=== PATIENT | male | born 1980 | race Caucasian/White ===

== ENCOUNTER 2017-02-25 03:22 | Emergency (ER) | payer OTHER ==
[~2017-02-25] VITALS: Ht 180.3 cm; Wt 72.6 kg
[~2017-02-25 03:22] MED LIST: AMOX500 PO; ATOR80 PO; CITA20 PO; CLOP75 PO; CYCL10 PO; DOXE10 PO; GABA300 PO; GEMF600 PO; GLIP5 PO; HYDHCL25 PO; HYDMOR2 PO; INSU100I6; LISI5 PO; MEDICAL MARIJUANA; METF500 PO; METF500C PO; NAPR500 PO; NICO21TP; OMEP20ER PO; OMEPRAZOLE MAGN20 MG PO; OXYACE5T PO; OXYC10ER PO; OXYC5 PO; PRED10 PO; PROM25 PO; Prednisone10 MG PO; Prednisone20 MG PO; RXOXYACE PO; RXTRAM50 PO; TRAM50 PO; Ultram50 MG PO; Zithromax250 MG PO
== END 2017-02-25 04:26 | disposition home or self-care (01) ==
LOC: ER 03:22
DX: M54.2 Cervicalgia (principal); E11.42 Type 2 diabetes mellitus with diabetic polyneuropathy; M79.602 Pain in left arm; M79.601 Pain in right arm; I10 Essential (primary) hypertension; F17.200 Nicotine dependence, unspecified, uncomplicated; Z88.8 Allergy status to other drugs, medicaments and biological substances; Z79.899 Other long term (current) drug therapy; Z79.84 Long term (current) use of oral hypoglycemic drugs; Z79.4 Long term (current) use of insulin
CPT/HCPCS: 96372; 99283; J1885

== ENCOUNTER 2017-05-01 15:28 | Emergency (ER) | payer OTHER ==
[~2017-05-01] VITALS: Ht 180.3 cm; Wt 70.3 kg
[2017-05-01] MEDS ORDERED: Cleocin HCl300 MG PO (16:38)
[2017-05-01] MEDS ORDERED: Ultram50 MG PO (16:38)
== END 2017-05-01 16:56 | disposition home or self-care (01) ==
LOC: ER 15:28
DX: K04.7 Periapical abscess without sinus (principal); K08.89 Other specified disorders of teeth and supporting structures; Z88.8 Allergy status to other drugs, medicaments and biological substances; Z79.899 Other long term (current) drug therapy; Z79.4 Long term (current) use of insulin; Z79.84 Long term (current) use of oral hypoglycemic drugs; E11.9 Type 2 diabetes mellitus without complications; Z86.73 Personal history of transient ischemic attack (TIA), and cerebral infarction without residual deficits; I10 Essential (primary) hypertension; F17.210 Nicotine dependence, cigarettes, uncomplicated
CPT/HCPCS: 64400; 99283

== ENCOUNTER 2017-06-04 01:48 | Emergency (ER) | payer OTHER ==
[~2017-06-04] VITALS: Ht 180.3 cm; Wt 72.6 kg
[~2017-06-04 01:48] MED LIST changes: +Cleocin HCl300 MG PO
[2017-06-04 02:26] LABS: BASOPHILS ABSOLUTE AUTO 0.06 K/mm3 (0.00-0.23); BASOPHILS PERCENT AUTO 1 % (0-2); EOSINOPHILS ABSOLUTE AUTO 0.18 K/mm3 (0.00-0.68); EOSINOPHILS PERCENT AUTO 2 % (0-6); Hematocrit 44.6 % (37.0-53.0); Hemoglobin 15.3 g/dL (13.5-17.5); IMMATURE GRAN ABSOLUTE AUTO 0.03 K/mm3 (0.00-0.10); IMMATURE GRAN PERCENT AUTO 0 % (0-1); LYMPHOCYTES ABSOLUTE AUTO 3.38 K/mm3 (0.84-5.20); LYMPHOCYTES PERCENT AUTO 33 % (21-46); MONOCYTES ABSOLUTE AUTO 0.61 K/mm3 (0.16-1.47); MONOCYTES PERCENT AUTO 6 % (4-13); Mean Corpuscular HGB 29.8 pg (26.0-34.0); Mean Corpuscular HGB Conc 34.3 g/dL (31.5-36.5); Mean Corpuscular Volume 87 fL (80-100); Mean Platelet Volume 10.4 fL (9.1-12.4); NEUTROPHILS ABSOLUTE AUTO 6.13 K/mm3 (1.96-9.15); NEUTROPHILS PERCENT AUTO 59 % (41-73); Platelet Count 259 K/mm3 (150-400); RDW Coefficient Variation 12.9 % (11.7-14.2); Red Blood Cell Count 5.13 M/mm3 (4.30-5.90); White Blood Cell Count 10.39 K/mm3 (4.00-11.30)
[2017-06-04 02:46] LABS: International Normalized Ratio 1.06
[2017-06-04 02:47] LABS: Alanine Aminotransfer (ALT/SGP 33 U/L (12-78); Albumin, Blood 3.7 g/dL (3.4-5.0); Albumin/Globulin Ratio 1.1 (0.8-1.8); Alk Phos 97 U/L (50-136); Anion Gap 8 mmol/L (6-16); Aspartate Aminotrans (AST/SGOT 12 U/L (12-37); Beta-hydroxybutyrate 1.7 mg/dL (0.2-2.8); Bilirubin, Total 0.3 mg/dL (0.1-1.0); Blood Urea Nitrogen 14 mg/dL (8-24); Bun/Creatinine Ratio 24.2 (12.0-20.0); CO2, Blood 25 mmol/L (21-32); Calcium, Blood 8.4 mg/dL (8.5-10.1); Chloride, Blood 106 mmol/L (98-108); Creatinine, Blood 0.58 mg/dL (0.60-1.20); Globulin, Blood 3.3 g/dL (2.2-4.0); Glomerular Filtration Rate >60 (60-); Glucose, Blood 261 mg/dL (70-99); Potassium, Blood 3.7 mmol/L (3.5-5.5); Sodium, Blood 139 mmol/L (136-145); Troponin I <0.015 ng/mL (0.000-0.040)
== END 2017-06-04 04:24 ==
LOC: ER 01:48
PROVIDERS: Emergency Medicine
DX: G45.9 Transient cerebral ischemic attack, unspecified (principal); E11.9 Type 2 diabetes mellitus without complications; I10 Essential (primary) hypertension; K21.9 Gastro-esophageal reflux disease without esophagitis; F17.210 Nicotine dependence, cigarettes, uncomplicated; Z88.6 Allergy status to analgesic agent; Z88.8 Allergy status to other drugs, medicaments and biological substances
CPT/HCPCS: 36415; 70450; 70496; 70498; 80053; 82010; 83735; 84484; 85025; 85610; 93005; 93010; 99284; Q9967

== ENCOUNTER → 2020-09-03 | Outpatient (CLI) | payer OTHER ==
[2020-09-03 19:29] LABS: BASOPHILS ABSOLUTE AUTO 0.06 K/mm3 (0.00-0.23); BASOPHILS PERCENT AUTO 1 % (0-2); EOSINOPHILS PERCENT AUTO 2 % (0-6); IMMATURE GRAN ABSOLUTE AUTO 0.02 K/mm3 (0.00-0.10); IMMATURE GRAN PERCENT AUTO 0 % (0-1); LYMPHOCYTES ABSOLUTE AUTO 2.81 K/mm3 (0.84-5.20); LYMPHOCYTES PERCENT AUTO 28 % (21-46); MONOCYTES ABSOLUTE AUTO 0.77 K/mm3 (0.16-1.47); MONOCYTES PERCENT AUTO 8 % (4-13); Mean Corpuscular HGB 30.3 pg (26.0-34.0); Mean Corpuscular HGB Conc 34.8 g/dL (31.5-36.5); Mean Corpuscular Volume 87 fL (80-100); NEUTROPHILS ABSOLUTE AUTO 6.27 K/mm3 (1.96-9.15); NEUTROPHILS PERCENT AUTO 62 % (41-73); Platelet Count 259 K/mm3 (150-400); RDW Coefficient Variation 12.3 % (11.7-14.2); RDW Standard Deviation 39.2 fL (35.1-46.3); Red Blood Cell Count 5.28 M/mm3 (4.30-5.90); White Blood Cell Count 10.13 K/mm3 (4.00-11.30)
[2020-09-03 20:14] LABS: Very Low Density Lipoprot Chol 14 mg/dL (6-32)
[2020-09-03 20:15] LABS: LDL/HDL RATIO 2.3
[2020-09-03 20:16] LABS: CHOL/HDL RATIO 3.6; Cholesterol 172 mg/dL (50-200); HDL Cholesterol 48 mg/dL (>39); Low Density Lipoprotein Chol 110 mg/dL (0-110); Triglycerides 70 mg/dL (30-160)
[2020-09-03 20:18] LABS: Free Thyroxine 0.98 ng/dL (0.70-1.60)
[2020-09-03 20:24] LABS: Alanine Aminotransfer (ALT/SGP 45 U/L (12-78); Albumin, Blood 4.3 g/dL (3.4-5.0); Albumin/Globulin Ratio 1.2 (0.8-1.8); Alk Phos 108 U/L (50-136); Anion Gap 8 mmol/L (6-16); Aspartate Aminotrans (AST/SGOT 28 U/L (12-37); Bilirubin, Total 0.5 mg/dL (0.1-1.0); Blood Urea Nitrogen 17 mg/dL (8-24); Bun/Creatinine Ratio 23.3 (12.0-20.0); CO2, Blood 25 mmol/L (21-32); Calcium, Blood 9.3 mg/dL (8.5-10.1); Chloride, Blood 106 mmol/L (98-108); Creatinine, Blood 0.73 mg/dL (0.60-1.20); Globulin, Blood 3.5 g/dL (2.2-4.0); Glomerular Filtration Rate >60 (60-); Glucose, Blood 199 mg/dL (70-99); Potassium, Blood 3.8 mmol/L (3.5-5.5); Sodium, Blood 139 mmol/L (136-145); Total Protein, Blood 7.8 g/dL (6.4-8.2)
== END | disposition home or self-care (01) ==
LOC: LAB SHORT 18:36 → LAB 18:36
PROVIDERS: General Practice
DX: E11.65 Type 2 diabetes mellitus with hyperglycemia (principal); N50.812 Left testicular pain; R53.81 Other malaise
CPT/HCPCS: 80053; 80061; 83036; 84403; 84439; 84443; 85025

== ENCOUNTER → 2020-12-28 | Outpatient (CLI) | payer OTHER ==
[2020-12-28 15:18] LABS: Anion Gap 11 mmol/L (6-16); Blood Urea Nitrogen 14 mg/dL (8-24); Bun/Creatinine Ratio 17.9 (12.0-20.0); CO2, Blood 27 mmol/L (21-32); Calcium, Blood 9.1 mg/dL (8.5-10.1); Chloride, Blood 101 mmol/L (98-108); Creatinine, Blood 0.78 mg/dL (0.60-1.20); Glomerular Filtration Rate >60 (60-); Glucose, Blood 292 mg/dL (70-99); Potassium, Blood 4.1 mmol/L (3.5-5.5); Sodium, Blood 139 mmol/L (136-145)
[2020-12-28 15:21] LABS: Troponin I <0.017 ng/mL (0.000-0.040)
== END ==
LOC: LAB SHORT 15:03 → LAB 15:03
PROVIDERS: Physician Assistant
DX: R07.9 Chest pain, unspecified (principal); Z88.8 Allergy status to other drugs, medicaments and biological substances; Z88.6 Allergy status to analgesic agent
CPT/HCPCS: 80048; 84484

== ENCOUNTER 2020-12-30 11:11 | Emergency (ER) | payer OTHER ==
[~2020-12-30] VITALS: Ht 180.3 cm; Wt 63.5 kg
[2020-12-30 12:15] LABS: BASOPHILS PERCENT AUTO 1 % (0-2); EOSINOPHILS ABSOLUTE AUTO 0.54 K/mm3 (0.00-0.68); EOSINOPHILS PERCENT AUTO 5 % (0-6); Hematocrit 48.9 % (37.0-53.0); IMMATURE GRAN ABSOLUTE AUTO 0.05 K/mm3 (0.00-0.10); IMMATURE GRAN PERCENT AUTO 0 % (0-1); LYMPHOCYTES ABSOLUTE AUTO 3.14 K/mm3 (0.84-5.20); LYMPHOCYTES PERCENT AUTO 27 % (21-46); MONOCYTES PERCENT AUTO 6 % (4-13); Mean Corpuscular HGB 30.1 pg (26.0-34.0); Mean Corpuscular HGB Conc 34.8 g/dL (31.5-36.5); Mean Corpuscular Volume 87 fL (80-100); Mean Platelet Volume 10.5 fL (9.1-12.4); NEUTROPHILS ABSOLUTE AUTO 7.08 K/mm3 (1.96-9.15); NEUTROPHILS PERCENT AUTO 61 % (41-73); Platelet Count 318 K/mm3 (150-400); RDW Standard Deviation 38.9 fL (35.1-46.3); Red Blood Cell Count 5.64 M/mm3 (4.30-5.90); White Blood Cell Count 11.61 K/mm3 (4.00-11.30)
[2020-12-30 12:50] LABS: Alanine Aminotransfer (ALT/SGP 28 U/L (12-78); Albumin, Blood 3.7 g/dL (3.4-5.0); Albumin/Globulin Ratio 0.9 (0.8-1.8); Alk Phos 130 U/L (50-136); Anion Gap 4 mmol/L (6-16); Aspartate Aminotrans (AST/SGOT 11 U/L (12-37); Bilirubin, Total 0.4 mg/dL (0.1-1.0); Blood Urea Nitrogen 17 mg/dL (8-24); Bun/Creatinine Ratio 30.7 (12.0-20.0); CO2, Blood 29 mmol/L (21-32); Calcium, Blood 9.3 mg/dL (8.5-10.1); Chloride, Blood 101 mmol/L (98-108); Creatinine, Blood 0.55 mg/dL (0.60-1.20); Globulin, Blood 3.9 g/dL (2.2-4.0); Glomerular Filtration Rate >60 (60-); Glucose, Blood 398 mg/dL (70-99); Potassium, Blood 4.4 mmol/L (3.5-5.5); Sodium, Blood 134 mmol/L (136-145); Total Protein, Blood 7.6 g/dL (6.4-8.2); Troponin I <0.015 ng/mL (0.000-0.040)
[2020-12-30] MEDS ORDERED: CYCL10 (13:52)
[2020-12-30] MEDS ORDERED: IBUP800 PO (13:52)
[2020-12-30] MEDS ORDERED: TRAM50 PO (14:20)
== END 2020-12-30 14:35 | disposition home or self-care (01) ==
LOC: ER 11:11
PROVIDERS: Physician Assistant
DX: S29.012A Strain of muscle and tendon of back wall of thorax, initial encounter (principal); E11.65 Type 2 diabetes mellitus with hyperglycemia; M19.90 Unspecified osteoarthritis, unspecified site; I10 Essential (primary) hypertension; K21.9 Gastro-esophageal reflux disease without esophagitis; F17.210 Nicotine dependence, cigarettes, uncomplicated; Z86.73 Personal history of transient ischemic attack (TIA), and cerebral infarction without residual deficits; Z79.84 Long term (current) use of oral hypoglycemic drugs; Z88.6 Allergy status to analgesic agent; Z88.8 Allergy status to other drugs, medicaments and biological substances; X58.XXXA Exposure to other specified factors, initial encounter
CPT/HCPCS: 36415; 71046; 80053; 83690; 84484; 85025; 85379; 93005; 93010; 96374; 99285-25; J1885

== ENCOUNTER 2021-01-23 16:08 | Emergency (ER) | payer OTHER ==
[~2021-01-23] VITALS: Ht 180.3 cm; Wt 65.8 kg
[~2021-01-23 16:08] MED LIST changes: +CYCL10; +IBUP800 PO
[2021-01-23 16:38] LABS: BASOPHILS ABSOLUTE AUTO 0.05 K/mm3 (0.00-0.23); BASOPHILS PERCENT AUTO 1 % (0-2); EOSINOPHILS ABSOLUTE AUTO 0.55 K/mm3 (0.00-0.68); EOSINOPHILS PERCENT AUTO 6 % (0-6); Hematocrit 47.9 % (37.0-53.0); Hemoglobin 16.5 g/dL (13.5-17.5); IMMATURE GRAN ABSOLUTE AUTO 0.01 K/mm3 (0.00-0.10); IMMATURE GRAN PERCENT AUTO 0 % (0-1); LYMPHOCYTES ABSOLUTE AUTO 3.17 K/mm3 (0.84-5.20); LYMPHOCYTES PERCENT AUTO 32 % (21-46); MONOCYTES ABSOLUTE AUTO 0.63 K/mm3 (0.16-1.47); MONOCYTES PERCENT AUTO 6 % (4-13); Mean Corpuscular HGB 29.7 pg (26.0-34.0); Mean Corpuscular HGB Conc 34.4 g/dL (31.5-36.5); Mean Corpuscular Volume 86 fL (80-100); Mean Platelet Volume 10.5 fL (9.1-12.4); NEUTROPHILS ABSOLUTE AUTO 5.42 K/mm3 (1.96-9.15); NEUTROPHILS PERCENT AUTO 55 % (41-73); Platelet Count 323 K/mm3 (150-400); RDW Standard Deviation 38.1 fL (35.1-46.3); Red Blood Cell Count 5.55 M/mm3 (4.30-5.90); White Blood Cell Count 9.83 K/mm3 (4.00-11.30)
[2021-01-23 17:01] LABS: Alanine Aminotransfer (ALT/SGP 24 U/L (12-78); Albumin, Blood 3.6 g/dL (3.4-5.0); Alk Phos 102 U/L (50-136); Anion Gap 4 mmol/L (6-16); Aspartate Aminotrans (AST/SGOT 13 U/L (12-37); Bilirubin, Total 0.6 mg/dL (0.1-1.0); Blood Urea Nitrogen 14 mg/dL (8-24); Bun/Creatinine Ratio 27.5 (12.0-20.0); CO2, Blood 25 mmol/L (21-32); Calcium, Blood 8.7 mg/dL (8.5-10.1); Chloride, Blood 107 mmol/L (98-108); Creatinine, Blood 0.51 mg/dL (0.60-1.20); Globulin, Blood 3.7 g/dL (2.2-4.0); Glomerular Filtration Rate >60 (60-); Glucose, Blood 240 mg/dL (70-99); Potassium, Blood 3.8 mmol/L (3.5-5.5); Sodium, Blood 136 mmol/L (136-145); Total Protein, Blood 7.3 g/dL (6.4-8.2); Troponin I <0.015 ng/mL (0.000-0.040)
[2021-01-23] MEDS ORDERED: IBUP800 PO (18:31)
== END 2021-01-23 18:50 | disposition home or self-care (01) ==
LOC: ER 16:08
PROVIDERS: Physician Assistant
DX: S29.9XXA Unspecified injury of thorax, initial encounter (principal); K08.89 Other specified disorders of teeth and supporting structures; W01.198A Fall on same level from slipping, tripping and stumbling with subsequent striking against other object, initial encounter; Z88.8 Allergy status to other drugs, medicaments and biological substances; Z79.899 Other long term (current) drug therapy; Z79.84 Long term (current) use of oral hypoglycemic drugs; E11.9 Type 2 diabetes mellitus without complications; I10 Essential (primary) hypertension; K21.9 Gastro-esophageal reflux disease without esophagitis; F17.210 Nicotine dependence, cigarettes, uncomplicated
CPT/HCPCS: 36415; 71260; 80053; 83690; 83880; 84484; 85025; 93005; 93010; 96374; 99285-25; A9270; J1885; Q9967

== ENCOUNTER 2021-02-26 11:12 | Emergency (ER) | payer OTHER ==
[~2021-02-26] VITALS: Ht 180.3 cm; Wt 65.8 kg
[2021-02-26] MEDS ORDERED: IBUP400 PO (13:16)
== END 2021-02-26 13:29 | disposition home or self-care (01) ==
LOC: ER 11:12
DX: J40 Bronchitis, not specified as acute or chronic (principal); E11.9 Type 2 diabetes mellitus without complications; I10 Essential (primary) hypertension; Z86.73 Personal history of transient ischemic attack (TIA), and cerebral infarction without residual deficits; F17.210 Nicotine dependence, cigarettes, uncomplicated; Z88.8 Allergy status to other drugs, medicaments and biological substances; Z79.84 Long term (current) use of oral hypoglycemic drugs; Z79.899 Other long term (current) drug therapy
CPT/HCPCS: 71046; 99283-25

== ENCOUNTER 2022-01-15 09:39 | Emergency (ER) | payer OTHER ==
[~2022-01-15] VITALS: Ht 180.3 cm; Wt 63.5 kg
[~2022-01-15 09:39] MED LIST changes: +IBUP400 PO
[2022-01-15] MEDS ORDERED: CYCL10 PO (11:54)
[2022-01-15] MEDS ORDERED: METPRE4DP PO (11:54)
[2022-01-15] MEDS ORDERED: Voltaren100 GM TOP (11:54)
== END 2022-01-15 12:09 | disposition home or self-care (01) ==
LOC: ER 09:39
DX: M25.511 Pain in right shoulder (principal); E11.9 Type 2 diabetes mellitus without complications; F17.210 Nicotine dependence, cigarettes, uncomplicated; Z86.73 Personal history of transient ischemic attack (TIA), and cerebral infarction without residual deficits
CPT/HCPCS: 73030

== ENCOUNTER → 2022-02-08 | Outpatient (CLI) | payer OTHER ==
[~2022-02-08] MED LIST changes: +METPRE4DP PO; +Voltaren100 GM TOP
== END | disposition home or self-care (01) ==
LOC: LAB 15:50 → LAB SHORT 15:50
DX: H92.12 Otorrhea, left ear (principal); H70.12 Chronic mastoiditis, left ear
CPT/HCPCS: 87070; 87186; 87205

== ENCOUNTER → 2022-03-11 | Outpatient (CLI) | payer OTHER | END | disposition home or self-care (01) | LOC: LAB SHORT 08:38 | DX: H92.12 Otorrhea, left ear (principal) | CPT/HCPCS: 87070; 87205 ==

== ENCOUNTER 2022-03-14 13:42 | Inpatient (IN) | payer OTHER ==
[~2022-03-14] VITALS: Ht 180.3 cm; Wt 56.9 kg
[2022-03-14 14:05] LABS: Base Excess Venous -2.8 mmol/L; Bicarbonate Venous 21.8 mmol/L (24.0-30.0); PCO2 Venous 34.3 mmHg (38-42); pH Blood Venous 7.41 (7.34-7.37)
[2022-03-14 14:20] LABS: Hematocrit 49.6 % (37.0-53.0); Hemoglobin 17.6 g/dL (13.5-17.5); Mean Corpuscular HGB 29.7 pg (26.0-34.0); Mean Corpuscular HGB Conc 35.5 g/dL (31.5-36.5); Mean Corpuscular Volume 84 fL (80-100); Mean Platelet Volume 11.8 fL (9.1-12.4); Platelet Count 342 K/mm3 (150-400); RDW Coefficient Variation 12.4 % (11.7-14.2); RDW Standard Deviation 37.4 fL (35.1-46.3); Red Blood Cell Count 5.93 M/mm3 (4.30-5.90); White Blood Cell Count 26.51 K/mm3 (4.00-11.30)
[2022-03-14 14:35] LABS: Bilirubin, Total 1.2 mg/dL (0.1-1.0); Bun/Creatinine Ratio 40.2 (12.0-20.0); Calcium, Blood 10.1 mg/dL (8.5-10.1); Creatinine, Blood 0.85 mg/dL (0.60-1.20); Globulin, Blood 4.1 g/dL (2.2-4.0); Potassium, Blood 3.7 mmol/L (3.5-5.5); Total Protein, Blood 8.1 g/dL (6.4-8.2)
[2022-03-14 15:09] LABS: International Normalized Ratio 1.09; Prothrombin Time Results 11.4 Sec (9.7-11.5)
[2022-03-14 15:29] LABS: Source, Urine Clean Catch
[2022-03-14 15:37] LABS: Appearance, Urine Clear (Clear); Bilirubin, Urine Neg (Neg); Blood, Urine Neg (Neg); Glucose Qualitative, Urine 4+ (Neg); Ketones, Urine 4+ (Neg); Leukocyte Esterase, Urine Neg (Neg); Nitrite, Urine Neg (Neg); Protein, Urine Neg (Neg); Specific Gravity, Urine 1.025 (1.003-1.022); Urobilinogen, Urine NORM (Normal)
[2022-03-14 15:54] LABS: Color, Urine Pale Yellow (P-Yellow)
[2022-03-14 16:09] LABS: Influenza A, PCR NEGATIVE (NEGATIVE); Influenza B, PCR NEGATIVE (NEGATIVE); Resp Syncytial Virus, PCR NEGATIVE (NEGATIVE); SARS-Cov-2 (COVID-19) PCR, MMC NEGATIVE (NEGATIVE)
[2022-03-14 16:26] LABS: U Amphetamine Screen Not Detected; U Barbituate Screen Not Detected; U Benzodiazapine Screen Not Detected; U Buprenorphine Screen Not Detected; U Cannabinoids Screen DETECTED; U Cocaine Screen Not Detected; U Methadone Screen Not Detected; U Methamphetamine Screen Not Detected; U Opiates Screen Not Detected; U Oxycodone Screen Not Detected; U Phencyclidine Screen Not Detected; U Propoxyphene Screen Not Detected
[2022-03-14 16:27] LABS: Magnesium, Blood 2.2 mg/dL (1.6-2.4)
[2022-03-14 16:36] LABS: Beta-hydroxybutyrate 102.7 mg/dL (0.2-2.8); Phosphorus, Blood 6.8 mg/dL (2.5-4.9)
[2022-03-14 17:30] LABS: BASOPHILS PERCENT MAN 0 % (0-2); EOSINOPHILS PERCENT MAN 0 % (0-6); LYMPHOCYTES ABSOLUTE MAN 4.24 K/mm3 (0.84-5.20); LYMPHOCYTES PERCENT MAN 16 % (21-46); MONOCYTES ABSOLUTE MAN 1.59 K/mm3 (0.16-1.47); MONOCYTES PERCENT MAN 6 % (4-13); NEUTROPHILS ABSOLUTE MAN 20.67 K/mm3 (1.96-9.15); SEG NEUTROPHILS PERCENT MAN 78 % (41-73); TOTAL CELLS COUNTED 100
[2022-03-14 18:28] LABS: Albumin, Blood 3.5 g/dL (3.4-5.0); Anion Gap 18 mmol/L (6-16); Blood Urea Nitrogen 31 mg/dL (8-24); CO2, Blood 23 mmol/L (21-32); Calcium, Blood 8.7 mg/dL (8.5-10.1); Chloride, Blood 96 mmol/L (98-108); Creatinine, Blood 0.78 mg/dL (0.60-1.20); Glomerular Filtration Rate 113 (60-); Glucose, Blood 434 mg/dL (70-99); Phosphorus, Blood 4.9 mg/dL (2.5-4.9); Sodium, Blood 137 mmol/L (136-145)
--- NOTE | 2022-03-14 19:05 | NUR ---
PATIENT ARRIVED TO ICU 3 VIA [facility]NEY [facility] ED. TRANSFER TO BED USING SLIDER SHEET AND PLACED ON ICU MONITORS. INSULIN 7.3 UNITS INFUSING, KPHOS INFUSING, AND 1/2 NS 20 KCL INFUSING. PATIENT IMPULSIVE AND MOANING, WHEN ASKED SPECIFIC QUESTIONS ABLE TO ANSWER WITHOUT DIFFICULTY. WHEN ASKED WHY HE KEPT MOVING AND PULLING ON MONITOR LEADS, PATIENT VERBALIZED " I JUST HURT" RUBBING HIS NECK AND HIS RIGHT SHOULDER. AGAIN EXPLAINED IMPORTANCE TO KEEP ALL LINES AND IV'S IN PLACE, AND REMIND PATIENT THAT HE IS NOW IN THE ICU. APPEARED TO CALM DOWN WHEN GIVEN ICE CHIP AND NOTIFIED THAT I WILL CALL THE DOCTOR REGARDING HIS PAIN.
--- NOTE | 2022-03-14 20:03 | NUR ---
DOCTOR BURDEN CALLED AND GIVEN UPDATE, NOTIFIED OF SEVERE THROAT PAIN. ORDER OBTAINED FOR PAIN MEDICATIONS.
--- NOTE | 2022-03-14 20:45 | NUR ---
PATIENT SPITTING COUCH BLOOD TINGED SPUTUM ON THE FLOOR, PATIENT AGAIN SHOWED THE EMESIS BAG, AND KLEENEX. WHEN ASKED IF IT WAS EMESIS OR SPUTUM, PATIENT ONLY ABLE TO SAY THAT IT CAME FROM BACK OF THIS THROAT.
[2022-03-14 22:24] LABS: Albumin, Blood 3.5 g/dL (3.4-5.0); Anion Gap 9 mmol/L (6-16); Blood Urea Nitrogen 27 mg/dL (8-24); Bun/Creatinine Ratio 44.9 (12.0-20.0); CO2, Blood 29 mmol/L (21-32); Calcium, Blood 9.1 mg/dL (8.5-10.1); Chloride, Blood 100 mmol/L (98-108); Glomerular Filtration Rate 122 (60-); Glucose, Blood 213 mg/dL (70-99); Phosphorus, Blood 4.1 mg/dL (2.5-4.9); Potassium, Blood 3.5 mmol/L (3.5-5.5); Sodium, Blood 138 mmol/L (136-145)
--- NOTE | 2022-03-14 22:46 | NUR ---
PATIENT HAD 100 CC OF EMESIS, LOOKING LIKE BROWN BILE. CONTINUES TO C/O SORE THROAT WHEN AWAKE. CONTINUES TO BE A&O, BUT VERY IMPULSIVE. UP TO BSC WITH MIN ASSISTANCE PASSING LARGE HARD FORMED BROWN BM, AND VOIDING CLEAR YELLOW URINE.
[2022-03-15 02:23] LABS: BASOPHILS ABSOLUTE AUTO 0.05 K/mm3 (0.00-0.23); BASOPHILS PERCENT AUTO 0 % (0-2); EOSINOPHILS ABSOLUTE AUTO 0.04 K/mm3 (0.00-0.68); EOSINOPHILS PERCENT AUTO 0 % (0-6); IMMATURE GRAN ABSOLUTE AUTO 0.11 K/mm3 (0.00-0.10); IMMATURE GRAN PERCENT AUTO 1 % (0-1); LYMPHOCYTES ABSOLUTE AUTO 2.81 K/mm3 (0.84-5.20); LYMPHOCYTES PERCENT AUTO 12 % (21-46); MONOCYTES ABSOLUTE AUTO 2.56 K/mm3 (0.16-1.47); MONOCYTES PERCENT AUTO 11 % (4-13); Mean Corpuscular HGB 29.6 pg (26.0-34.0); Mean Corpuscular HGB Conc 35.7 g/dL (31.5-36.5); Mean Corpuscular Volume 83 fL (80-100); Mean Platelet Volume 10.6 fL (9.1-12.4); NEUTROPHILS ABSOLUTE AUTO 17.44 K/mm3 (1.96-9.15); NEUTROPHILS PERCENT AUTO 76 % (41-73); Platelet Count 245 K/mm3 (150-400); RDW Coefficient Variation 12.3 % (11.7-14.2); RDW Standard Deviation 37.4 fL (35.1-46.3); Red Blood Cell Count 5.07 M/mm3 (4.30-5.90); White Blood Cell Count 23.01 K/mm3 (4.00-11.30)
[2022-03-15 02:42] LABS: Albumin, Blood 3.1 g/dL (3.4-5.0); Anion Gap 7 mmol/L (6-16); Blood Urea Nitrogen 22 mg/dL (8-24); Bun/Creatinine Ratio 42.1 (12.0-20.0); CO2, Blood 29 mmol/L (21-32); Calcium, Blood 8.4 mg/dL (8.5-10.1); Chloride, Blood 102 mmol/L (98-108); Creatinine, Blood 0.52 mg/dL (0.60-1.20); Glomerular Filtration Rate 127 (60-); Glucose, Blood 147 mg/dL (70-99); Phosphorus, Blood 3.3 mg/dL (2.5-4.9); Potassium, Blood 3.3 mmol/L (3.5-5.5); Sodium, Blood 138 mmol/L (136-145)
--- NOTE | 2022-03-15 03:21 | NUR ---
DOCTOR KATE NOTIFIED OF REPEAT CHEM, AND POTASSIUM LEVEL. REPLACEMENT ORDERED
--- NOTE | 2022-03-15 05:12 | NUR ---
PATIENT MORE AWAKE AND COOPERATIVE. ASKING WHAT HAPPENED. EXPLAINED THAT HE HAS BEEN HAVING N/V FOR DAYS, THEN BECOMING CONFUSED SO HIS SISTER CALLED EMS. PATIENT VERBALIZED THAT HE WAS WORRIED ABOUT HIS KIDS AGES 13 AND 17. AND CALLED HIS CELL PHONE NUMBER AND WAS ABLE TO TALK TO HIS SISTER, AUGUTSO. PATIENT VERBALIZED THAT HE WASN'T ABLE TO GET A REFILL ON HIS INSULIN MONTHS AGO, UNABLE TO SPECIFY WHEN HE LAST TOOK ANY INSULIN. PATIENT HAVING MOIST SOUNDING VOICE, VERBALIZED THAT HE HAS BEEN HAVING A LOT OF DRAINAGE FROM HIS SINUSES AND LEFT EAR FOR DAYS NOW. PATIENT THINKING THAT THIS IS CAUSING HIS NAUSEA. EXPLAINED AGAIN THAT HE WAS IN DKA, WITH HIS SUGAR TO HIGH WHICH ALSO CAN CAUSE NAUSEA.
--- NOTE | 2022-03-15 06:22 | NUR ---
SUMMARY PATIENT MORE COOPERATIVE AND AWARE OF HIS LINES AND CORDS NIGHT PROGRESSED. CONTINUES TO C/O THROAT PAIN, WITH MOIST SOUNDING VOICE, FREQUENTLY CLEARING THROAT AND SPITTING INTO EMESIS BAG, SPUTUM RANGING FROM CLEAR TO COUCH BLOOD STREAKED. MEDICATED TWICE WITH MORPHINE 1 MG IV FOR PAIN. RANDOLPH FEW ICE CHIPS THIS MORNING. INSULIN DRIP TITRATED DURING THE NIGHT NOW 5 UNITS/HR. D5 1/2NS @ 150 CC/HR INFUSING, AND NS TKO FOR ANTIBIOTICS. K-RIDER INFUSING C/O SLIGHT BURNING PAIN TO THE IV, NO SWELLING OR LEAKING SEEN, WARM BLANKET PLACED OVER SITE WITH GOOD RELIEF. PATIENT UP TO BSC ONCE DURING THE NIGHT WITH MIN ASSIST, PASSING LARGE FORMED BROWN BM.
[2022-03-15 06:58] LABS: Albumin, Blood 3.2 g/dL (3.4-5.0); Anion Gap 6 mmol/L (6-16); Blood Urea Nitrogen 21 mg/dL (8-24); Bun/Creatinine Ratio 39.5 (12.0-20.0); CO2, Blood 28 mmol/L (21-32); Calcium, Blood 8.9 mg/dL (8.5-10.1); Chloride, Blood 102 mmol/L (98-108); Creatinine, Blood 0.53 mg/dL (0.60-1.20); Glomerular Filtration Rate 127 (60-); Glucose, Blood 211 mg/dL (70-99); Phosphorus, Blood 2.2 mg/dL (2.5-4.9); Potassium, Blood 3.5 mmol/L (3.5-5.5); Sodium, Blood 136 mmol/L (136-145)
--- NOTE | 2022-03-15 07:22 | NUR ---
Assumed care at 0705. Bedside report received. Pt sleeping in bed, on room air. Insulin infusing at 5 unit/hr, D5/1/2NS infusing at 150 ml/hr, NS TKO. Vital signs stable, no acute needs. Continue to monitor.
--- NOTE | 2022-03-15 18:32 | NUR ---
Shift summary. Pt independent in room throughout shift. Insulin GTT DC'd per Dr. Knight, pt switched to long-acting and sliding scale. No acute events. See assessment for details. Will continue to monitor and report off to nightshift RN.
--- NOTE | 2022-03-15 19:50 | NUR ---
ASSUMPTION OF CARE/ASSESSMENT: ASSUMED CARE OF PT AT 1900. PT IS SLEEPING BUT WAKES EASILY. PT IS PLEASANT AND COOPERATIVE WITH CARE; A&O X 4. PT CURRENTLY ON RA WITH SPO2 96< AND RR 18-20; CLEAR LUNG SOUNDS AND NO C/O SOB. PT SINUS TACH ON MONITOR WITH HR 100-110, SBP 110'S AND NO C/O CHEST PAIN. PT HYPERACTIVE BS IN ALL QUADRANTS AND HAS C/O NAUSEA BUT NO ACTIVE VOMITTING. PT HAS C/O PAIN IN THROAT R/T PREVIOUS VOMITTING; ICE CHIPS TO HELP SOOTHE THROAT. PT IN INDEPENDENT WITH BED MOBILITY AND TRANSFERRING TO TOILET IN ROOM. PT ON LUQUID DIET R/T TO POSSIBLE PRECEDURE. AFEBRILE, 20 G PIV IN LAC WITH NS TKO INFUSING. BED LOWERED, CALL LIGHT IN REACH, WILL CONTINUE TO MONITOR.
--- NOTE | 2022-03-15 20:44 | NUR ---
PT TRANSFER TO [facility] 314 BED 2: CALLED REPORT TO ASHER SIMPSON ON MEDICAL FLOOR. PT TRANSFERRED TO [facility] 314 BED 2. PT LEFT UNIT @ 2027 AND TRANSFERRED TO NEW ROOM VIA WHEELCHAIR. AL PT BELONGINGS TRANSPORTED WITH PT TO NEW ROOM.
--- NOTE | 2022-03-15 20:45 | NUR ---
PT HERE VIA ICU BED. PT TRANSFERRED TO MEDICAL FLOOR BED, WITH GURPREET PRATT, AND HOPE GREGG.
--- NOTE | 2022-03-15 21:00 | NUR ---
PT LAYING IN BED, WATCHING TV. PT HAS ICE CHIPS AND WATER AT BEDSIDE. PT DENIES ANY REQUESTS AT THIS TIME. HE REPORTS THROAT PAIN, BUT DENIES REQUEST FOR PAIN MEDICATION. BED IN LOW POSITION. CALL LIGHT WITHIN REACH. PT IS ALERT AND ORIENTED X3.
--- NOTE | 2022-03-15 21:00 | NUR ---
TRANSFER PATIENT TRANSFERED FROM ICU. PATIENT SETTLED INTO ROOM. PATIENT ORIENTED TO CALL LIGHT AT TV. PATIENT IS A&O X4. PATIENT IS IND IN ROOM. PATIENT IS ON CLEAR LIQUID DIET, PATIENT REPORTED SOME NAUSEA ON ARRIVAL, BUT DENIES MEDICATION. STATED IT WAS FROM "THE RIDE UP TO THE ROOM". IV TO LEFT A/C FLUSHED WITHOUT ISSUE. ABX RE-CONNECTED AND STARTED. 2RN SKIN CHECK DONE WITH LIS MANE. VITALS TAKEN. ICE CHIPS, CHAPSTICK, AND WARM BLANKET GIVEN TO PATIENT AT HIS REQUEST. PATIENT REQUESTING LIGHTS OUT TO SLEEP, DONE. PATIENT PLEASANT AND COOPERATIVE WITH CARE.
--- NOTE | 2022-03-16 04:19 | NUR ---
SHIFT SUMMARY - NO ACUTE CHANGES SINCE ADMIT TO FLOOR LAST NOC. PT CONTINUES WITH THROAT PAIN. MEDICATED X2 WITH MORPHINE - SEE EMAR. ICE CHIPS/WATER AT BEDSIDE. PT IS SCHEDULED FOR AN EGD TODAY. PT HAS SLEPT FOR APPX 2-3 HOURS TONIGHT. CALL LIGHT WITHIN REACH. BED IN LOW POSITION. FLUIDS AT BEDSIDE. TKO IV INFUSING.
[2022-03-16 06:07] LABS: BASOPHILS ABSOLUTE AUTO 0.05 K/mm3 (0.00-0.23); BASOPHILS PERCENT AUTO 0 % (0-2); EOSINOPHILS ABSOLUTE AUTO 0.05 K/mm3 (0.00-0.68); EOSINOPHILS PERCENT AUTO 0 % (0-6); Hematocrit 40.8 % (37.0-53.0); Hemoglobin 14.1 g/dL (13.5-17.5); IMMATURE GRAN ABSOLUTE AUTO 0.06 K/mm3 (0.00-0.10); IMMATURE GRAN PERCENT AUTO 0 % (0-1); LYMPHOCYTES ABSOLUTE AUTO 1.91 K/mm3 (0.84-5.20); LYMPHOCYTES PERCENT AUTO 14 % (21-46); MONOCYTES PERCENT AUTO 9 % (4-13); Mean Corpuscular HGB 29.4 pg (26.0-34.0); Mean Corpuscular HGB Conc 34.6 g/dL (31.5-36.5); Mean Corpuscular Volume 85 fL (80-100); Mean Platelet Volume 10.9 fL (9.1-12.4); NEUTROPHILS PERCENT AUTO 77 % (41-73); Platelet Count 213 K/mm3 (150-400); RDW Coefficient Variation 12.7 % (11.7-14.2); RDW Standard Deviation 39.6 fL (35.1-46.3); White Blood Cell Count 14.07 K/mm3 (4.00-11.30)
--- NOTE | 2022-03-16 06:10 | NUR ---
PT HAD REQUESTED ZOFRAN IV, WHEN NEXT DOSE WAS AVAILABLE. WENT TO PT'S ROOM AND PT WAS SLEEPING SOUNDLY. RETURNED ZOFRAN TO [facility]. RESPIRATIONS EVEN AND UNLABORED.
[2022-03-16 06:24] LABS: Albumin, Blood 2.9 g/dL (3.4-5.0); Bilirubin, Total 0.8 mg/dL (0.1-1.0); Bun/Creatinine Ratio 34.9 (12.0-20.0); Calcium, Blood 8.5 mg/dL (8.5-10.1); Creatinine, Blood 0.55 mg/dL (0.60-1.20); Potassium, Blood 3.6 mmol/L (3.5-5.5); Total Protein, Blood 5.9 g/dL (6.4-8.2)
[2022-03-16 10:48] LABS: Hematocrit 40.6 % (37.0-53.0); Hemoglobin 14.3 g/dL (13.5-17.5)
--- NOTE | 2022-03-16 16:49 | NUR ---
History, Chart, Medications and Allergies reviewed before start of procedure. Lungs clear T/O to Auscultation. Patient confirms NPO status and agrees with scheduled surgery. Pre-Op teaching done. Pt verbalizes understanding. LAC IV DC'D DUE TO LEAKING. NEW IV PLACED IN LFA
--- NOTE | 2022-03-16 17:25 | NUR ---
03/16/22 1725 Donna Lemus HISTORY, CHART, MEDICATIONS AND ALLERGIES REVIEWED BEFORE START OF PROCEDURE. PATIENT CONFIRMS NPO STATUS AND AGREES WITH SCHEDULED PROCEDURE. 3-LEAD EKG REVIEWED WITH PHYSICIAN PRIOR TO START OF PROCEDURE. MONITOR INTACT WITH CONTINUOUS PULSE OXIMETRY,CAPNOGRAPHY, 3-LEAD EKG, INTERMITTENT BP. SUPPLEMENTAL O2 TO BE TITRATED THROUGHOUT PROCEDURE TO MAINTAIN O2 SATURATION ABOVE 90%. PATIENT DETERMINED TO BE ASA APPROPRIATE FOR PROPOFOL SEDATION PRIOR TO START OF PROCEDURE BY DR. RENO
[2022-03-16 19:21] LABS: Hematocrit 40.8 % (37.0-53.0)
--- NOTE | 2022-03-16 19:53 | NUR ---
SHIFT SUMMARY PT SLEEPING, RESTING QUIETLY AT START OF SHIFT. PER SHIFT REPORT, PT TX'D FROM ICU DURING NOC SHIFT. PT ORIGINALLY ADMITTED FOR HYPERGLYCEMIA/DKA. PT REPORTED RESOLVED, "FIXED". PT NPO EXCEPT FOR ICE AND WATER IN AM AND THEN COMPLETE NPO BEFORE LUNCH FOR EGD. PT WITH C/O N/V AND ABD PAIN. PINK TINGED EMESIS NOTED. DR CHIRINOS IN TO SEE PT AND DISCUSS PLAN OF CARE. PT TAKEN DOWN FOR EGD LATE THIS AFTERNOON; PER REPORT, NOTHING FOUND BUT ESOPHOGEAL IRRITATION FROM VOMITING. PT TO START TAKING PRILOSEC. PT RETURNED FROM EGD DEMANDING TO BE D/C'D TONIGHT. ATTEMPTED TO CONTACT DR CHIRINOS, BUT UNABLE TO DO SO IT WAS AFTER HOURS. DISCUSSED WITH BIZTALK ARCHITECT; PT MAY LEAVE AMA HE DOES NOT WISH TO STAY THE NIGHT. IV ABX INFUSED PER EMAR. PT ABLE TO EAT DINNER, TOLERATING WELL. NO FURTHER C/O N/V. CALL LT IN REACH. REPORT GIVEN TO ONCOMING RN.
[2022-03-17 02:32] LABS: Hematocrit 39.3 % (37.0-53.0); Hemoglobin 13.8 g/dL (13.5-17.5)
--- NOTE | 2022-03-17 05:09 | NUR ---
SHIFT SUMMARY A&O, PLEASANT, COOPERATIVE. CONCERNED ABOUT OUTPATIENT APPT AT START OF SHIFT, CONSIDERED LEAVING AMA BUT DECIDED TO STAY, REQUESTS WE CALL OUTPATIENT FACILITY TO INFORM. CBG MONITORED Q6, INSULIN ADMINISTERED ORDERED. MOVES INDEPENDENT IN BED, LAST BM 03/14.
[2022-03-17 05:58] LABS: Bun/Creatinine Ratio 22.6 (12.0-20.0); Calcium, Blood 8.2 mg/dL (8.5-10.1); Creatinine, Blood 0.53 mg/dL (0.60-1.20); Potassium, Blood 3.2 mmol/L (3.5-5.5)
[2022-03-17] MEDS ORDERED: INSULIN GL100 UNIT/3 SC (11:19)
[2022-03-17] MEDS ORDERED: OMEP20ER PO (11:21)
[2022-03-17] MEDS ORDERED: HUMALOG100 UNIT/1 (11:21)
[2022-03-17] MEDS ORDERED: PROM25 PO (11:23)
--- NOTE | 2022-03-17 12:06 | NUR ---
RN NOTE MR DE LA CRUZ WAS DISCHARGED HOME AT 1149AM. HE WAS A&OX4, AMBULATING WELL IN THE HALLS. C/O MINOR THROAT AND EPIGASTRIC DISCOMFORT THIS AM, SAID THAT IT HAS IMPROVED A LOT OVER HOW IT WAS. GIVEN WRITTEN AND VERBAL DISCHARGE INSTRUCTIONS AFTER CHRISTINA, PHARMACIST, GAVE EDUCATION. PT VERBALISED UNDERSTANDING OF INSTRUCTIONS, NO FURTHER QUESTIONS. MEDS FAXED AND CONFIRMATION OF FAX ([facility]). PIV REMOVED PRIOR TO DISCHARGE HOME.
== END 2022-03-17 11:49 | disposition home or self-care (01) | DRG 637 ==
LOC: ER 13:42 → MEDS 17:22 → ICUW 17:22 → ICUE 17:22 → MEDS 03-15 20:50
PROVIDERS: Internal Medicine; Internal Medicine Gastroenterology; Student in an Organized Health Care Education/Training Program; ADMIT Family Medicine
PROC: 0DJ08ZZ Inspection of Upper Intestinal Tract, Via Natural or Artificial Opening Endoscopic (ICD-10-PCS; principal; 2022-03-16 17:30)
DX: E11.10 Type 2 diabetes mellitus with ketoacidosis without coma (principal); K22.11 Ulcer of esophagus with bleeding; K31.1 Adult hypertrophic pyloric stenosis; E11.65 Type 2 diabetes mellitus with hyperglycemia; D72.829 Elevated white blood cell count, unspecified; I10 Essential (primary) hypertension; K21.9 Gastro-esophageal reflux disease without esophagitis; M54.9 Dorsalgia, unspecified; G89.29 Other chronic pain; Z20.822 Contact with and (suspected) exposure to COVID-19; M19.90 Unspecified osteoarthritis, unspecified site; F17.210 Nicotine dependence, cigarettes, uncomplicated; H91.90 Unspecified hearing loss, unspecified ear; Z86.73 Personal history of transient ischemic attack (TIA), and cerebral infarction without residual deficits; Z88.8 Allergy status to other drugs, medicaments and biological substances; Z79.84 Long term (current) use of oral hypoglycemic drugs; Z79.899 Other long term (current) drug therapy; Z98.890 Other specified postprocedural states
CPT/HCPCS: 0241U; 36415; 71045; 80048; 80053; 80069; 81003; 82010; 82803; 82947; 83605; 83690; 83735; 83930; 84100; 84484; 85014; 85018; 85025; 85610; 86850; 86900; 86901; 87040; 93005; 93010; 96361; 96365; 96367; 96375; 97162; 97530; 99285-25; A9270; C9113; G0480; J1790; J1815; J2250; J2270; J2354; J2405; J2543; J2704; J3370; J3480; J7030; J7042; J7050; J7060; J7120

== ENCOUNTER → 2023-08-11 | Outpatient (CLI) | payer OTHER ==
[~2023-08-11] MED LIST changes: +HUMALOG100 UNIT/1; +INSULIN GL100 UNIT/3 SC
[2023-08-11 13:40] LABS: LDL/HDL RATIO 1.6
[2023-08-11 13:41] LABS: Alanine Aminotransfer (ALT/SGP 38 U/L (12-78); Albumin, Blood 3.4 g/dL (3.4-5.0); Albumin/Globulin Ratio 0.9 (0.8-1.8); Alk Phos 146 U/L (50-136); Anion Gap 6 mmol/L (3-11); Aspartate Aminotrans (AST/SGOT 19 U/L (12-37); Bilirubin, Total 0.3 mg/dL (0.1-1.0); Blood Urea Nitrogen 14 mg/dL (8-24); Bun/Creatinine Ratio 22.2 (12.0-20.0); CHOL/HDL RATIO 3.3; CO2, Blood 28 mmol/L (21-32); Calcium, Blood 8.4 mg/dL (8.5-10.1); Chloride, Blood 105 mmol/L (98-108); Cholesterol 132 mg/dL (50-200); Creatinine, Blood 0.63 mg/dL (0.60-1.20); Globulin, Blood 3.6 g/dL (2.2-4.0); Glomerular Filtration Rate 120 (60-); Glucose, Blood 271 mg/dL (70-99); HDL Cholesterol 40 mg/dL (>39); Low Density Lipoprotein Chol 64 mg/dL (0-110); Potassium, Blood 4.4 mmol/L (3.5-5.5); Sodium, Blood 135 mmol/L (136-145); Triglycerides 139 mg/dL (30-160); Very Low Density Lipoprot Chol 27 mg/dL (6-32)
[2023-08-11 14:22] LABS: BASOPHILS ABSOLUTE AUTO 0.09 K/mm3 (0.00-0.23); BASOPHILS PERCENT AUTO 1 % (0-2); EOSINOPHILS ABSOLUTE AUTO 0.88 K/mm3 (0.00-0.68); EOSINOPHILS PERCENT AUTO 9 % (0-6); Hematocrit 44.1 % (37.0-53.0); Hemoglobin 14.9 g/dL (13.5-17.5); IMMATURE GRAN ABSOLUTE AUTO 0.02 K/mm3 (0.00-0.10); IMMATURE GRAN PERCENT AUTO 0 % (0-1); LYMPHOCYTES ABSOLUTE AUTO 3.06 K/mm3 (0.84-5.20); LYMPHOCYTES PERCENT AUTO 31 % (21-46); MONOCYTES ABSOLUTE AUTO 0.64 K/mm3 (0.16-1.47); MONOCYTES PERCENT AUTO 7 % (4-13); Mean Corpuscular HGB 29.6 pg (26.0-34.0); Mean Corpuscular HGB Conc 33.8 g/dL (31.5-36.5); Mean Corpuscular Volume 88 fL (80-100); Mean Platelet Volume 11.5 fL (9.1-12.4); NEUTROPHILS ABSOLUTE AUTO 5.11 K/mm3 (1.96-9.15); NEUTROPHILS PERCENT AUTO 52 % (41-73); Platelet Count 253 K/mm3 (150-400); RDW Coefficient Variation 13.6 % (11.7-14.2); RDW Standard Deviation 43.8 fL (35.1-46.3); Red Blood Cell Count 5.03 M/mm3 (4.30-5.90)
== END ==
LOC: LAB 10:20 → LAB SHORT 10:20
PROVIDERS: Family Medicine
DX: R07.9 Chest pain, unspecified (principal); E10.9 Type 1 diabetes mellitus without complications
CPT/HCPCS: 80053; 80061; 83036; 84443; 85025

== ENCOUNTER 2024-06-25 12:59 | Emergency (ER) | payer OTHER ==
[~2024-06-25] VITALS: Ht 180.3 cm; Wt 68.0 kg
[2024-06-25 13:12] VITALS: BP 131/80
[2024-06-25] MEDS ORDERED: Ondansetron HCl 2 MG / ML 2ML Vial IV ONE (13:30)
[2024-06-25 13:40] LABS: BASOPHILS ABSOLUTE AUTO 0.09 K/mm3 (0.00-0.23); BASOPHILS PERCENT AUTO 1 % (0-2); EOSINOPHILS ABSOLUTE AUTO 0.12 K/mm3 (0.00-0.68); EOSINOPHILS PERCENT AUTO 1 % (0-6); Hematocrit 42.8 % (37.0-53.0); Hemoglobin 14.7 g/dL (13.5-17.5); IMMATURE GRAN ABSOLUTE AUTO 0.05 K/mm3 (0.00-0.10); IMMATURE GRAN PERCENT AUTO 0 % (0-1); LYMPHOCYTES ABSOLUTE AUTO 1.18 K/mm3 (0.84-5.20); LYMPHOCYTES PERCENT AUTO 10 % (21-46); MONOCYTES PERCENT AUTO 2 % (4-13); Mean Corpuscular HGB 29.6 pg (26.0-34.0); Mean Corpuscular HGB Conc 34.3 g/dL (31.5-36.5); Mean Corpuscular Volume 86 fL (80-100); Mean Platelet Volume 10.8 fL (9.1-12.4); NEUTROPHILS ABSOLUTE AUTO 10.67 K/mm3 (1.96-9.15); NEUTROPHILS PERCENT AUTO 86 % (41-73); Platelet Count 269 K/mm3 (150-400); RDW Coefficient Variation 13.1 % (11.7-14.2); RDW Standard Deviation 41.3 fL (35.1-46.3); Red Blood Cell Count 4.97 M/mm3 (4.30-5.90); White Blood Cell Count 12.41 K/mm3 (4.00-11.30)
[2024-06-25 14:18] LABS: Albumin, Blood 3.9 g/dL (3.4-5.0); Albumin/Globulin Ratio 1.2 (0.8-1.8); Bilirubin, Total 0.5 mg/dL (0.1-1.0); Bun/Creatinine Ratio 21.2 (12.0-20.0); Calcium, Blood 8.7 mg/dL (8.5-10.1); Creatinine, Blood 0.57 mg/dL (0.60-1.20); Globulin, Blood 3.3 g/dL (2.2-4.0); Potassium, Blood 3.6 mmol/L (3.5-5.5); Total Protein, Blood 7.2 g/dL (6.4-8.2)
== END 2024-06-25 16:11 | disposition left against medical advice (07) ==
LOC: ER 12:59
PROVIDERS: Student in an Organized Health Care Education/Training Program
DX: R10.13 Epigastric pain (principal); R10.11 Right upper quadrant pain; R11.2 Nausea with vomiting, unspecified; K52.9 Noninfective gastroenteritis and colitis, unspecified; E11.9 Type 2 diabetes mellitus without complications; K21.9 Gastro-esophageal reflux disease without esophagitis; F17.210 Nicotine dependence, cigarettes, uncomplicated; Z88.8 Allergy status to other drugs, medicaments and biological substances; Z79.84 Long term (current) use of oral hypoglycemic drugs; Z79.4 Long term (current) use of insulin; Z79.899 Other long term (current) drug therapy; Z86.73 Personal history of transient ischemic attack (TIA), and cerebral infarction without residual deficits; Z53.21 Procedure and treatment not carried out due to patient leaving prior to being seen by health care provider; G43.909 Migraine, unspecified, not intractable, without status migrainosus; E87.6 Hypokalemia; I10 Essential (primary) hypertension
CPT/HCPCS: 0241U; 76705; 80053; 82803; 82947; 83690; 85025; 93005; 93010; 96361; 96374; 96375; 99284-25; J1885; J2405; J2765; J7120

== ENCOUNTER 2024-06-25 21:19 | Emergency (ER) | payer OTHER ==
[~2024-06-25] VITALS: Ht 180.3 cm; Wt 68.0 kg
[2024-06-25 21:41] LABS: BASOPHILS ABSOLUTE AUTO 0.03 K/mm3 (0.00-0.23); BASOPHILS PERCENT AUTO 0 % (0-2); EOSINOPHILS PERCENT AUTO 0 % (0-6); Hematocrit 35.4 % (37.0-53.0); Hemoglobin 12.7 g/dL (13.5-17.5); IMMATURE GRAN ABSOLUTE AUTO 0.03 K/mm3 (0.00-0.10); IMMATURE GRAN PERCENT AUTO 0 % (0-1); LYMPHOCYTES ABSOLUTE AUTO 1.11 K/mm3 (0.84-5.20); LYMPHOCYTES PERCENT AUTO 9 % (21-46); MONOCYTES PERCENT AUTO 4 % (4-13); Mean Corpuscular HGB 30.2 pg (26.0-34.0); Mean Corpuscular HGB Conc 35.9 g/dL (31.5-36.5); Mean Corpuscular Volume 84 fL (80-100); Mean Platelet Volume 10.8 fL (9.1-12.4); NEUTROPHILS ABSOLUTE AUTO 10.83 K/mm3 (1.96-9.15); NEUTROPHILS PERCENT AUTO 87 % (41-73); Platelet Count 229 K/mm3 (150-400); RDW Coefficient Variation 13.1 % (11.7-14.2); RDW Standard Deviation 40.4 fL (35.1-46.3)
[2024-06-25 21:43] LABS: Base Excess Venous 5.2 mmol/L; Bicarbonate Venous 28.9 mmol/L (24.0-30.0)
[2024-06-25 22:02] LABS: Albumin, Blood 3.2 g/dL (3.4-5.0); Albumin/Globulin Ratio 1.1 (0.8-1.8); Bilirubin, Total 0.4 mg/dL (0.1-1.0); Bun/Creatinine Ratio 23.6 (12.0-20.0); Calcium, Blood 8.3 mg/dL (8.5-10.1); Creatinine, Blood 0.59 mg/dL (0.60-1.20); Globulin, Blood 2.8 g/dL (2.2-4.0); Potassium, Blood 3.1 mmol/L (3.5-5.5)
[2024-06-25 22:17] LABS: Influenza A, PCR NEGATIVE (NEGATIVE); Influenza B, PCR NEGATIVE (NEGATIVE); Resp Syncytial Virus, PCR NEGATIVE (NEGATIVE); SARS-Cov-2 (COVID-19) PCR, MMC NEGATIVE (NEGATIVE)
[2024-06-25] MEDS ORDERED: Lactated Ringer's 1,000 ML IV ONE (22:30)
[2024-06-25] MEDS ORDERED: Ketorolac Tromethamine 15mg Vial IV ONE (22:30)
[2024-06-25] MEDS ORDERED: Metoclopramide HCl 5MG / ML 2ML Vial IV ONE (22:30)
[2024-06-26] VITALS: BP 118/72
== END 2024-06-26 00:32 | disposition home or self-care (01) ==
LOC: ER 21:19
PROVIDERS: Student in an Organized Health Care Education/Training Program
DX: G43.909 Migraine, unspecified, not intractable, without status migrainosus (principal); E87.6 Hypokalemia; E11.9 Type 2 diabetes mellitus without complications; I10 Essential (primary) hypertension; K21.9 Gastro-esophageal reflux disease without esophagitis; F17.210 Nicotine dependence, cigarettes, uncomplicated; Z86.73 Personal history of transient ischemic attack (TIA), and cerebral infarction without residual deficits; Z88.8 Allergy status to other drugs, medicaments and biological substances; Z79.84 Long term (current) use of oral hypoglycemic drugs; Z79.4 Long term (current) use of insulin; Z79.899 Other long term (current) drug therapy
CPT/HCPCS: 0241U; 80053; 82803; 85025; 93005; 93010; J1885; J2765; J7120

== ENCOUNTER 2024-11-20 11:35 | Emergency (ER) | payer OTHER ==
[~2024-11-20] VITALS: Ht 180.3 cm; Wt 68.0 kg
[2024-11-20 11:54] VITALS: BP 128/112
[2024-11-20] MEDS ORDERED: HYDROCODONE-AC1 EA10 PO (11:59)
[2024-11-20] MEDS ORDERED: METPRE4DP PO (11:59)
[2024-11-20] MEDS ORDERED: CELE100 PO (11:59)
== END 2024-11-20 12:01 | disposition home or self-care (01) ==
LOC: ER 11:35
DX: M54.10 Radiculopathy, site unspecified (principal); I10 Essential (primary) hypertension; E11.9 Type 2 diabetes mellitus without complications; K21.9 Gastro-esophageal reflux disease without esophagitis; F17.210 Nicotine dependence, cigarettes, uncomplicated; Z88.8 Allergy status to other drugs, medicaments and biological substances; Z79.84 Long term (current) use of oral hypoglycemic drugs; Z79.4 Long term (current) use of insulin; Z79.899 Other long term (current) drug therapy; M19.90 Unspecified osteoarthritis, unspecified site
CPT/HCPCS: 82947; 93005; 93010; 99283-25

== ENCOUNTER 2024-12-19 09:54 | Emergency (ER) | payer OTHER ==
[~2024-12-19] VITALS: Ht 180.3 cm; Wt 65.8 kg
[~2024-12-19 09:54] MED LIST changes: +CELE100 PO; +HYDROCODONE-AC1 EA10 PO
[2024-12-19] MEDS ORDERED: Lidocaine 4% 1 Patch TOP ONE (10:10)
[2024-12-19] MEDS ORDERED: Ketorolac Tromethamine 15mg Vial IM ONE (10:10)
[2024-12-19] MEDS ORDERED: ACET500 PO (10:15)
[2024-12-19] MEDS ORDERED: IBUP600 PO (10:15)
[2024-12-19 10:38] VITALS: BP 133/89
== END 2024-12-19 10:39 | disposition home or self-care (01) ==
LOC: ER 09:54
DX: M54.12 Radiculopathy, cervical region (principal); E11.9 Type 2 diabetes mellitus without complications; I10 Essential (primary) hypertension; K21.9 Gastro-esophageal reflux disease without esophagitis; F17.210 Nicotine dependence, cigarettes, uncomplicated; Z88.8 Allergy status to other drugs, medicaments and biological substances; Z79.84 Long term (current) use of oral hypoglycemic drugs; Z79.4 Long term (current) use of insulin; Z79.899 Other long term (current) drug therapy
CPT/HCPCS: 93005; 93010; 96372; 99283-25; A9270; J1885